=== PATIENT | male | born 1985 | race Caucasian/White ===

== ENCOUNTER 2022-01-09 08:43 | Emergency (ER) | payer OTHER ==
[2022-01-09] MEDS ORDERED: ACETAMINOPHEN 325 MG TABLET (FP) PO ONE (08:48)
[2022-01-09] MEDS ORDERED: IBUPROFEN 400 MG TABLET (FP) PO ONE ×2 (08:48→08:54)
[2022-01-09 08:49] VITALS: BP 136/91; PULSE 106; TEMP 100.4; BMI 34.7
[2022-01-09] MEDS ORDERED: ACETAMINOPHEN 325 MG TABLET (FP) ONE (08:54)
== END 2022-01-09 09:14 | disposition home or self-care (01) ==
LOC: FER 08:43
DX: J11.1 Influenza due to unidentified influenza virus with other respiratory manifestations (principal)
CPT/HCPCS: 87804; 99283-25